=== PATIENT | male | born 1970 ===

== ENCOUNTER 2020-12-18 05:23 | Day surgery (SDC) | payer OTHER ==
[~2020-12-18 05:23] MED LIST: AVALIDE 300-121 EACH PO; DILTIAZEM ER120 M2 PO; NORVASC10 MG PO; [UNRECOGNIZED DRUG - OTHER] PO
[2020-12-18] MEDS ORDERED: ASA325 M1 PO (09:08)
[2020-12-18] MEDS ORDERED: ULTRACET PO (09:08)
[2020-12-18] MEDS ORDERED: DUI500 PO (09:08)
== END 2020-12-18 14:00 | disposition home or self-care (01) ==
LOC: CIR.AMB 05:23
PROVIDERS: ATTEND Orthopaedic Surgery
DX: S83.232A Complex tear of medial meniscus, current injury, left knee, initial encounter (principal); M94.262 Chondromalacia, left knee; M23.42 Loose body in knee, left knee; M67.362 Transient synovitis, left knee; Z20.822 Contact with and (suspected) exposure to COVID-19